=== PATIENT | male | born 1940 | race Caucasian/White ===

== ENCOUNTER 2017-01-16 05:19 | Emergency (ER) | payer OTHER ==
[~2017-01-16] VITALS: Ht 165.1 cm; Wt 103.6 kg
[~2017-01-16 05:19] MED LIST: ADULT LOW DOSE81 M1 PO; ALBUTEROL SULF8.5 GM IH; ASPIR 8181 M1 PO; ASPIRIN81 M1 PO; AZITHROMYCIN500 M1 PO; BENZONATATE100 MG PO; CALAN SR,COVER240 MG PO; CIPRODEX OTIC7.5 ML LEFT EAR; CORTISPORIN-TC10 M1 LEFT EAR; GLIPIZIDE10 MG PO; GLUCOMETER MC; GUAIFENESIN WI120 M1 PO; IRON325 MG PO; LISINOPRIL40 MG PO; METAMUCIL PACKE1 PKT PO; METFORMIN HCL500 MG PO; PRAVACHOL80 MG PO; PRAVASTATIN SOD80 MG PO; PREVACID15 MG PO; ROBITUSSIN100 MG/5 M PO; VENTOLIN HFA18 GM IH; VERAPAMIL ER180 MG PO; VERAPAMIL HCL180 MG PO; VERAPAMIL HCL240 MG PO; VERELAN 180 MG180 MG PO; XARELTO20 MG PO; ZESTRIL,PRINIVI40 MG PO; ZITHROMAX Z-PA250 MG PO
[2017-01-16 06:24] LABS: HEMATOCRIT 38.5 % (38.0-50.0); MCH 24.9 PG (29.0-34.0); MCHC 31.2 G/DL (30.0-36.0); MCV 79.9 FL (86-99); MEAN PLAT.VOLUME 10.1 uM^3 (9.0-12.4); PLATELET COUNT 427 K/uL (156-360); RBC DIS.WIDTH-CV 15.9 % (11.8-14.6); RED BLOOD COUNT 4.82 M/uL (4.00-5.50); WHITE BLOOD COUNT 10.9 K/uL (4.1-10.2)
[2017-01-16 06:49] LABS: CHLORIDE 105 mEq/L (99-109); POTASSIUM 4.2 mEq/L (3.7-5.4); SODIUM 138 mEq/L (136-147)
[2017-01-16 06:50] LABS: TROP-I INTERPRETATION NEGATIVE; TROPONIN-I < 0.01 ng/mL (0.0-0.30)
[2017-01-16 06:51] LABS: GLUCOSE 101 mg/dL (70-99)
[2017-01-16 06:52] LABS: ANION GAP 9 MEQ/L (2-14)
[2017-01-16 06:56] LABS: ALKALINE PHOSPHATASE 68 IU/L (3-129); GFR ESTIMATE (CALCULATED) > 59 mL/min/; TOTAL BILIRUBIN 0.7 mg/dL (0.0-1.0); UREA NITROGEN (BUN) 19 mg/dL (9-23)
[2017-01-16 06:58] LABS: LIPASE 16 U/L (1.0-51.0)
[2017-01-16 07:09] LABS: INTER. NORMALIZED RATIO 1.4; PROTHROMBIN TIME 14.2 (9.2-11.2); PTT 37.6 (25-32)
[2017-01-16] MEDS ORDERED: ANTIVERT25 MG PO (07:18)
[2017-01-16] MEDS ORDERED: AUGMENTIN875 MG PO (07:18)
[2017-01-16 07:41] VITALS: BP 152/81
== END 2017-01-16 07:43 | disposition home or self-care (01) ==
LOC: EME 05:19
PROVIDERS: Emergency Medicine
DX: R42 Dizziness and giddiness (principal); H65.01 Acute serous otitis media, right ear; I10 Essential (primary) hypertension; E11.9 Type 2 diabetes mellitus without complications; E78.5 Hyperlipidemia, unspecified; K21.9 Gastro-esophageal reflux disease without esophagitis; Z85.07 Personal history of malignant neoplasm of pancreas; Z95.0 Presence of cardiac pacemaker; Z87.891 Personal history of nicotine dependence; Z79.82 Long term (current) use of aspirin
CPT/HCPCS: 70450; 71020; 80053; 83690; 84484; 85027; 85610; 85730; 93005; 99281; 99284

== ENCOUNTER 2017-11-07 03:17 | Observation (INO) | payer OTHER ==
[~2017-11-07] VITALS: Ht 165.1 cm; Wt 101.1 kg
[~2017-11-07 03:17] MED LIST changes: +ANTIVERT25 MG PO; +AUGMENTIN875 MG PO
[2017-11-07 04:46] LABS: HEMOGLOBIN 11.1 G/DL (12.5-16.6); MCH 26.7 PG (29.0-34.0); MCHC 32.6 G/DL (30.0-36.0); MCV 81.9 FL (86-99); PLATELET COUNT 342 K/uL (156-360); RBC DIS.WIDTH-CV 13.9 % (11.8-14.6); RBC DIS.WIDTH-SD 41.3 % (39-53); RED BLOOD COUNT 4.15 M/uL (4.00-5.50); WHITE BLOOD COUNT 11.1 K/uL (4.1-10.2)
[2017-11-07 05:09] LABS: TROP-I INTERPRETATION NEGATIVE; TROPONIN-I < 0.01 ng/mL (0.0-0.30)
[2017-11-07 05:14] LABS: CHLORIDE 107 mEq/L (99-109); SODIUM 138 mEq/L (136-147)
[2017-11-07 05:16] LABS: GLUCOSE 103 mg/dL (70-99)
[2017-11-07 05:19] LABS: CREATININE 0.7 mg/dL (0.6-1.3); GFR ESTIMATE (CALCULATED) > 59 mL/min/ (58.99-99999)
[2017-11-07 05:20] LABS: UREA NITROGEN (BUN) 16 mg/dL (9-23)
[2017-11-07 05:31] LABS: INTER. NORMALIZED RATIO 2.1
[2017-11-07 05:34] LABS: PTT 39.8 SEC (25-37)
[2017-11-07] MEDS ORDERED: DIOVAN160 MG PO (07:56)
[2017-11-07] MEDS ORDERED: GLUCOPHAGE1000 MG PO (07:57)
[2017-11-07 09:05] LABS: HDL CHOLESTEROL 42 MG/DL (Desirable>=40); LDL CHOLESTEROL 79 mg/dL (Desirable<100); NON-HDL CHOLESTEROL 92 mg/dL (Desirable<160); TOTAL CHOLESTEROL 134 mg/dL (Desirable<200); TRIGLYCERIDES 64 MG/DL (Normal: <150)
[2017-11-07 12:35] VITALS: BP 146/92
[2017-11-07 13:16] LABS: HEMOGLOBIN A1c (GLYCOHEMOGLOB) 5.9 % (Below 5.7)
[2017-11-07 20:21] VITALS: BP 125/64
[2017-11-07 23:58] VITALS: BP 127/58
[2017-11-08 04:01] VITALS: BP 142/76
[2017-11-08 07:49] VITALS: BP 159/87
[2017-11-08 07:52] VITALS: BP 173/91
[2017-11-08 07:54] VITALS: BP 153/96
[2017-11-08 09:54] LABS: INTER. NORMALIZED RATIO 2.1
[2017-11-08 09:57] LABS: PTT 41.1 SEC (25-37)
[2017-11-08 09:58] LABS: ALKALINE PHOSPHATASE 64 IU/L (3-129); ALT (GPT) 7 IU/L (3-49); AST (GOT) 14 IU/L (2-34); CHLORIDE 105 MEQ/L (99-109); CREATININE 0.8 MG/DL (0.6-1.3); GFR ESTIMATE (CALCULATED) > 59 mL/min/ (58.99-99999); GLUCOSE 124 mg/dL (70-99); POTASSIUM 4.2 MEQ/L (3.7-5.4); SODIUM 139 MEQ/L (136-147); TOTAL BILIRUBIN 0.5 MG/DL (0.0-1.0); TOTAL PROTEIN 7.7 G/DL (6.4-8.3); UREA NITROGEN (BUN) 12 mg/dL (9-23)
[2017-11-08 11:50] VITALS: BP 130/70
[2017-11-08] MEDS ORDERED: ANTIVERT25 MG PO (12:50)
== END 2017-11-08 16:02 | disposition home or self-care (01) ==
LOC: EME → EDBD 03:17 → EDOF 07:49 → ENRESERV 07:53 → CANRESERV 10:12 → ENRESERV 10:12 → 5WEST 11:28
PROVIDERS: Emergency Medicine; Hospitalist
DX: H81.10 Benign paroxysmal vertigo, unspecified ear (principal); R11.0 Nausea; I10 Essential (primary) hypertension; E11.9 Type 2 diabetes mellitus without complications; E78.5 Hyperlipidemia, unspecified; Z85.07 Personal history of malignant neoplasm of pancreas; I49.5 Sick sinus syndrome; Z95.0 Presence of cardiac pacemaker; I48.91 Unspecified atrial fibrillation; Z79.01 Long term (current) use of anticoagulants; Z87.891 Personal history of nicotine dependence; Z82.49 Family history of ischemic heart disease and other diseases of the circulatory system; Z79.84 Long term (current) use of oral hypoglycemic drugs; Z88.0 Allergy status to penicillin
CPT/HCPCS: 70450; 80048; 80053; 80061; 82948; 83036; 84484; 85027; 85610; 85730; 87502; 93005; 93880; 99202; G0378; G8978 GP CH; G8979 GP CH; G8980 GP CH; G8987 GO CH; G8988 GO CH; G8989 GO CH; J2405